=== PATIENT | female | born 1940 | race Caucasian/White ===

== ENCOUNTER 2018-11-05 08:04 | Emergency (ER) | payer MEDICARE, OTHER ==
[~2018-11-05] VITALS: Ht 167.6 cm; Wt 79.4 kg
[2018-11-05] MEDS ORDERED: ONDANSETRON 4 MG/2 ML (SDV) Z0FRAN IVP ONE (08:30)
[2018-11-05] MEDS ORDERED: NS IV 1000 ML 1,000 ML IV SCH (08:30)
[2018-11-05] MEDS ORDERED: cefTRIAXone FOR IV USE 1,000 MG in WATER (STERILE) FOR INJECTION 10 ML IV ONE (08:30)
[2018-11-05] MEDS ORDERED: NS (IVPB) 50 ML ONE (08:36)
[2018-11-05 09:05] LABS: HEMATOCRIT 37 % (35-52); HEMOGLOBIN 12.6 G/DL (11.5-16.0); MEAN CORPUSCULAR HEMOGLOBIN 30 PG (25-34); MEAN CORPUSCULAR HGB CONC 34 G/DL (32-36); MEAN CORPUSCULAR VOLUME 89 FL (80-99); RED CELL DISTRIBUTION WIDTH 12.1 % (10.0-14.5); WHITE BLOOD COUNT 14.8 10^3/uL (4.3-11.0)
[2018-11-05 09:06] LABS: BASOPHILS % (AUTO) 0 % (0-10); EOSINOPHILS # (AUTO) 0.1 10^3/uL (0.0-0.3); EOSINOPHILS % (AUTO) 1 % (0-10); LYMPHOCYTES # (AUTO) 0.3 X 10^3 (1.0-4.0); LYMPHOCYTES % (AUTO) 2 % (12-44); MONOCYTES # (AUTO) 0.5 X 10^3 (0.0-1.0); MONOCYTES % (AUTO) 4 % (0-12); NEUTROPHILS # (AUTO) 13.8 X 10^3 (1.8-7.8); NEUTROPHILS % (AUTO) 93 % (42-75); PLATELET COUNT 224 10^3/uL (130-400)
[2018-11-05 09:07] LABS: CALCIUM 9.1 MG/DL (8.5-10.1); CREATININE SERUM 1.4 MG/DL (0.60-1.30); POTASSIUM 3.9 MMOL/L (3.6-5.0)
--- NOTE | 2018-11-05 09:25 | ED Abdominal Pain ---
General Chief Complaint: Abdominal/GI Problems Stated Complaint: NAUSEA; VOMITING Nursing Triage Note: PT STARTED TAKING MACROBID FOR A UTI ON MONDAY AND HAS HAD NAUSEA AND VOMTING OFF AND ON SINCE THEN. PT HAD ICE CHIPS THIS AM. Sepsis Screen: No Definite Risk Source of Information: Patient Exam Limitations: No Limitations History of Present Illness Date Seen by Provider: Nov 05, 2018 Time Seen by Provider: 08:30 Initial Comments Patient is a 28-year-old female presented generalized weakness, malaise, dysuria nausea and vomiting. Patient's symptoms began several days ago the patient was seen by her PCP 2 days ago and started on Macrobid for treatment of urinary tract infection. Patient was prescribed Macrobid. Patient reports vomiting after taking Macrobid but not before. Denies abdominal pain. No fever chills or sweats. Denies flank or low back pain. No history of urinary tract infections. Timing/Duration: 4-5 Days Severity/Quality: Moderate Location: Suprapubic Radiation: No Radiation Activities at Onset: None Associated Symptoms: Nausea/Vomiting, Weakness Allergies and Home Medications Allergies Coded Allergies: No Known Drug Allergies (Unverified , 11/05/18) Patient Home Medication List Home Medication List Reviewed: Yes Review of Systems Review of Systems Constitutional: see HPI EENTM: See HPI Respiratory: See HPI Cardiovascular: See HPI Gastrointestinal: See HPI Genitourinary: See HPI Musculoskeletal: see HPI Skin: see HPI Psychiatric/Neurological: See HPI Endocrine: See HPI Hematologic/Lymphatic: See HPI Past [id number] Hx Patient Social History Alcohol Use: Denies Use Recreational Drug Use: No Smoking Status: Never a Smoker 2nd Hand Smoke Exposure: No Recent Foreign Travel: No Contact w/Someone Who Travel: No Recent Infectious Disease Expo: No Recent Hopitalizations: No Physical Abuse: No Sexual Abuse: No Mistreated: No Fear: No Seasonal Allergies Seasonal Allergies: No Past Medical History Surgeries: Yes (RESECTION OF THE SIGMOID COLON) Respiratory: No Cardiac: Yes High Cholesterol, Hypertension, Irregular Heartbeat Neurological: No : No Genitourinary: No Gastrointestinal: Yes Musculoskeletal: Yes Arthritis Endocrine: No HEENT: No Cancer: No Psychosocial: No Integumentary: No Blood Disorders: No Physical Exam Vital Signs Vital Signs - First Documented 11/05/18 08:16 Temp 98.3 Pulse 93 Resp 18 B/P (MAP) 128/72 (90) Pulse Ox 95 O2 Delivery Room Air Capillary Refill : Less Than 3 Seconds Height/Weight/BMI Height: 5'6.00" Weight: 175lbs. oz. 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, no motor/sensory deficits, alert Skin: normal color Focused Exam Sepsis Stage: Ruled Out Progress/Results/Core Measures Results/Orders Lab Results Laboratory Tests Test 11/05/18 08:15 Range/Units White Blood Count 14.8 H 4.3-11.0 10^3/uL Red Blood Count 4.16 L 4.35-5.85 10^6/uL Hemoglobin 12.6 11.5-16.0 G/DL Hematocrit 37 35-52 % Mean Corpuscular Volume 89 80-99 FL Mean Corpuscular Hemoglobin 30 25-34 PG Mean Corpuscular Hemoglobin Concent 34 32-36 G/DL Red Cell Distribution Width 12.1 10.0-14.5 % Platelet Count 224 130-400 10^3/uL Mean Platelet Volume 12.0 H 7.4-10.4 FL Neutrophils (%) (Auto) 93 H 42-75 % Lymphocytes (%) (Auto) 2 L 12-44 % Monocytes (%) (Auto) 4 0-12 % Eosinophils (%) (Auto) 1 0-10 % Basophils (%) (Auto) 0 0-10 % Neutrophils # (Auto) 13.8 H 1.8-7.8 X 10^3 Lymphocytes # (Auto) 0.3 L 1.0-4.0 X 10^3 Monocytes # (Auto) 0.5 0.0-1.0 X 10^3 Eosinophils # (Auto) 0.1 0.0-0.3 10^3/uL Basophils # (Auto) 0.0 0.0-0.1 10^3/uL Neutrophils % (Manual) 75 % Lymphocytes % (Manual) 3 % Monocytes % (Manual) 2 % Band Neutrophils 20 % Blood Morphology Comment NORMAL Sodium Level 131 L 135-145 MMOL/L Potassium Level 3.9 3.6-5.0 MMOL/L Chloride Level 92 L 98-107 MMOL/L Carbon Dioxide Level 21 21-32 MMOL/L Anion Gap 18 H 5-14 MMOL/L Blood Urea Nitrogen 25 H 7-18 MG/DL Creatinine 1.40 H 0.60-1.30 MG/DL Estimat Glomerular Filtration Rate 36 BUN/Creatinine Ratio 18 Glucose Level 139 H 70-105 MG/DL Calcium Level 9.1 8.5-10.1 MG/DL My Orders Orders - BELL JAY DO Cbc With Automated Diff (11/05/18 08:26) Basic Metabolic Panel (11/05/18 08:26) Ceftriaxone For Iv Use (Rocephin For I (11/05/18 08:30) Ondansetron Injection (Zofran Injectio (11/05/18 08:30) Ns Iv 1000 Ml (Sodium Chloride 0.9%) (11/05/18 08:30) Ns (Ivpb) (Sodium Chloride 0.9% Ivpb Bag (11/05/18 08:36) Manual Differential (11/05/18 08:15) Ketorolac Injection (Toradol Injection) (11/05/18 09:30) Medications Given in ED Current Medications Medications Dose Ordered Sig/Elizabeth Route Start Time Stop Time Status Last Admin Dose Admin Ceftriaxone Sodium 1000 mg/ Sterile Water 10 ml @ 200 mls/hr ONCE ONCE IV 11/05/18 08:30 11/05/18 08:32 DC 11/05/18 08:50 200 MLS/HR Ketorolac Tromethamine 30 mg ONCE ONCE IVP 11/05/18 09:30 11/05/18 09:31 DC 11/05/18 09:32 30 MG Ondansetron HCl 4 mg ONCE ONCE IVP 11/05/18 08:30 11/05/18 08:32 DC 11/05/18 08:51 4 MG Sodium Chloride 50 ml @ STK-MED ONCE .ROUTE 11/05/18 08:36 11/05/18 08:44 DC 11/05/18 08:50 100 MLS/HR Vital Signs/I&O 11/05/18 08:16 Temp 98.3 Pulse 93 Resp 18 B/P (MAP) 128/72 (90) Pulse Ox 95 O2 Delivery Room Air Blood Pressure Mean: 90 Departure Communication (Admissions) IV fluids, antiemetics and antibiotics given. Symptoms significantly improved. No vomiting emergency department. No flank pain suggestive of kidney infection or kidney stone. Prescriptions for antibiotics and nausea medication provided. Recommend patient's her to follow up with PCP later today for urine culture result. Impression Primary Impression: Nausea and vomiting Additional Impressions: Urinary tract infection Hyponatremia Disposition: HOME, SELF-CARE Condition: Improved Departure-Patient Inst. Decision time for Depature: 09:38 Patient Instructions: Urinary Tract Infections in Adults, Hyponatremia (DC) Add. Discharge Instructions: Please discontinue current antibiotic, increase fluids and take newly prescribed medications as directed. Follow-up with your PCP in 2-3 days to review urine culture result and sodium level. Return to the ED if new or worsening symptoms. All discharge instructions reviewed with patient and/or family. Voiced understanding. Scripts Cefdinir (Cefdinir) 300 Mg Capsule 300 MG PO BID for 7 Days, CAP Prov: BELL JAY DO 11/05/18 Ondansetron (Ondansetron Odt) 4 Mg Tab.rapdis 4 MG PO Q6H PRN for NAUSEA/VOMITING-1ST LINE, #10 TAB Prov: BELL JAY DO 11/05/18 BELL JAY DO Nov 05, 2018 09:25
[2018-11-05] MEDS ORDERED: KETOROLAC 30 MG/ML VIAL IVP ONE (09:30)
[2018-11-05 09:31] LABS: BAND NEUTROPHILS 20 %; LYMPHOCYTES % (MANUAL) 3 %; MONOCYTES % (MANUAL) 2 %; NEUTROPHILS % (MANUAL) 75 %
[2018-11-05 09:32] LABS: RBC MORPH NORMAL
[2018-11-05 09:41] VITALS: BP 117/62
[2018-11-05] MEDS ORDERED: CEFD300C3 PO (09:41)
[2018-11-05] MEDS ORDERED: ONDA4TAB11 PO (09:41)
== END 2018-11-05 09:54 | disposition home or self-care (01) ==
LOC: ER FS 08:06
DX: N39.0 Urinary tract infection, site not specified (principal); E87.1 Hypo-osmolality and hyponatremia; I10 Essential (primary) hypertension; E78.00 Pure hypercholesterolemia, unspecified
CPT/HCPCS: 36415; 80048; 85007; 85027